=== PATIENT | female | born 2000 | race Caucasian/White ===

== ENCOUNTER 2025-06-14 12:21 | Emergency (ER) | payer OTHER, SELFPAY ==
[2025-06-14] MEDS ORDERED: Fluorescein Opthalmic Strip ONE (13:25)
[2025-06-14] MEDS ORDERED: Proparacaine 0.5% Opth 15 ML BOT ONE (13:25)
== END 2025-06-14 14:54 | disposition home or self-care (01) ==
LOC: CSHERS 12:21
DX: B02.30 Zoster ocular disease, unspecified (principal)
CPT/HCPCS: 99283

== ENCOUNTER 2025-10-11 11:33 | Emergency (ER) | payer OTHER ==
[2025-10-11 12:29] LABS: Glucose, Urine (Dipstick) Normal (Negative); Leukocyte 500 (Negative); Protein, Urine (Dipstick) 100 mg/dl (Neg-Trace); Specific Gravity, Urine 1.025 (1.005-1.030)
[2025-10-11] MEDS ORDERED: Ketorolac Tromethamine 30 MG (1 mL) VIAL ONE (12:30)
[2025-10-11 12:36] LABS: Bacteria/HPF 1+ HPF (None Seen); CAUTI Indications for Culture Pelvic or flank pain; RBC/HPF 21-50 HPF (0-3); WBC/HPF Greater Than 50 HPF (0-3)
[2025-10-11 12:37] LABS: Urine Culture Reflex Yes Yes
[2025-10-11 12:40] LABS: Pregnancy Test - Urine (BHCG) Negative (Negative); Pregu Control Background? CLEAR/WHITE (CLR/WHITE); Pregu Control Bar Appear? YES (CONTROL BAR)
[2025-10-12 00:10] LABS: Chlamydia by PCR, Vaginal Swab Not Detected (NotDetected); GC by PCR, Vaginal Swab Not Detected (NotDetected)
== END 2025-10-11 13:46 | disposition home or self-care (01) ==
LOC: CSHERS 11:33
DX: N39.0 Urinary tract infection, site not specified (principal); N76.0 Acute vaginitis; B96.89 Other specified bacterial agents as the cause of diseases classified elsewhere; Z79.899 Other long term (current) drug therapy
CPT/HCPCS: 74176; 81001; 81025; 87086; 87480; 87491; 87510; 87591; 87660; 96372; J1885